=== PATIENT | female | born 1960 | race Hispanic/Latino ===

== ENCOUNTER 2018-11-14 20:58 | Observation (INO) | payer OTHER ==
[~2018-11-14] VITALS: Ht 157.5 cm; Wt 90.7 kg
[2018-11-14] MEDS ORDERED: SODIUM CHLORIDE 0.9% 1000ML 1,000 ML IV STA (21:13)
[2018-11-14] MEDS ORDERED: ASPIRIN 81 MG CHEW TAB PO ONE ×2 (21:15→22:45)
[2018-11-14] MEDS ORDERED: ADENOSINE 6 MG/2 ML VIAL IV ONE ×2 (21:15→22:00)
[2018-11-14 21:38] LABS: BASOPHILS # (AUTO) 0.1 (0.0-0.1); BASOPHILS % 0.4 % (0.0-1.0); EOSINOPHILS # (AUTO) 0.3 (0.0-0.4); EOSINOPHILS % 2.4 % (0.0-6.0); HEMATOCRIT 44.1 % (34.2-44.1); LYMPHOCYTES # (AUTO) 4.8 (1.0-3.2); LYMPHOCYTES % 40.9 % (18.0-39.1); MEAN CORPUSCULAR HEMOGLOBIN 29.8 pg (28-32); MEAN CORPUSCULAR VOLUME 87.5 fL (81-99); MONOCYTES # (AUTO) 1.2 (0.2-0.8); MONOCYTES % 9.9 % (4.4-11.3); NEUTROPHILS # (AUTO) 5.4 (2.1-6.9); PLATELET COUNT 281 x10e3/uL (140-360); RED BLOOD COUNT 5.04 x10e6/uL (3.6-5.1); RED CELL DISTRIBUTION WIDTH 13.2 % (11.7-14.4)
[2018-11-14 22:21] LABS: ALBUMIN/GLOBULIN RATIO 0.9 (0.8-2.0); ANION GAP 20.5 mmol/L (8-16); CALCIUM 9.6 mg/dL (8.4-10.2); CREATININE, SERUM 1.04 mg/dL (0.57-1.11); MAGNESIUM 2.4 MG/DL (1.3-2.1)
[2018-11-14 22:23] LABS: BILIRUBIN,URINE NEGATIVE (NEGATIVE); CLARITY,URINE CLEAR (CLEAR); COLOR,URINE YELLOW (YELLOW); KETONES,URINE NEGATIVE (NEGATIVE); LEUKOCYTE ESTERASE ,URINE NEGATIVE (NEGATIVE); NITRITE,URINE NEGATIVE (NEGATIVE); PROTEIN,URINE DIPSTICK NEGATIVE (NEGATIVE); URINE UROBILINOGEN 0.2 mg/dL (0.2 - 1)
[2018-11-14 22:27] LABS: CREATINE KINASE MB 1.6 ng/mL (0-5.0)
[2018-11-14 22:35] LABS: BACTERIA,URINE MODERATE /HPF; EPITHELIAL CELLS,URINE FEW /LPF; WBC,URINE (MAN) 0-5 /HPF (0-5)
[2018-11-14 22:46] LABS: POTASSIUM 6.5 mmol/L (3.5-5.1)
[2018-11-14] MEDS ORDERED: DEXTROSE 50% SYRINGE 50 ML IV STA (22:47)
[2018-11-14] MEDS ORDERED: INSULIN REGULAR, HUMAN 100 UNIT/1 ML 3ML VIAL IV ONE (23:00)
[2018-11-14] MEDS ORDERED: SOD POLYSTYRENE SULFONATE SUSP 15 GM/60 ML BTL PO ONE (23:00)
[2018-11-14 23:15] LABS: ALANINE AMINOTRANSFERASE 21 IU/L (0-55); ALBUMIN 3.7 g/dL (3.5-5.0); ALBUMIN/GLOBULIN RATIO 1.2 (0.8-2.0); ALKALINE PHOSPHATASE 106 IU/L (40-150); ANION GAP 17.2 mmol/L (8-16); BLOOD UREA NITROGEN 18 mg/dL (7-26); BUN/CREATININE RATIO 21 (6-25); CARBON DIOXIDE 22 mmol/L (22-29); CHLORIDE 108 mmol/L (98-107); CREATININE, SERUM 0.84 mg/dL (0.57-1.11); EST GLOMERULAR FILTRATION RATE > 60 ML/MIN (60-); GLUCOSE 109 mg/dL (74-118); POTASSIUM 4.2 mmol/L (3.5-5.1); SODIUM 143 mmol/L (136-145)
--- NOTE | 2018-11-14 23:18 | Diagnostic Imaging Report ---
EXAMINATION: CHEST SINGLE (PORTABLE) COMPARISON: None INDICATION: Hypertension ^ERMD ORDER ^[id number] ^2220 ^Y DISCUSSION: Frontal view of the chest obtained at 2225 hours. HEART AND MEDIASTINUM: The heart is top normal in size, possibly due to technique. The aorta is normal in morphology LINES: None. LUNGS: The lungs are well inflated and clear. No pneumonia or pulmonary edema. PLEURA: No pleural effusion or pneumothorax. BONES AND SOFT TISSUES: No focal osseous lesion. The soft tissues are normal. IMPRESSION: No acute cardiopulmonary disease. Signed by: Dr. Thien Dorsey MD on 11/14/2018 11:15 PM
[2018-11-14] MEDS ORDERED: vitamin b12 PO (23:36)
[2018-11-14] MEDS ORDERED: MULTI-VITAMIN1 EACH PO (23:36)
[2018-11-14] MEDS ORDERED: DIOVAN80 MG PO (23:36)
[2018-11-14] MEDS ORDERED: GRISEOFULVIN U250 MG PO (23:36)
[2018-11-15] VITALS (10 sets, daily range): BP systolic 135–201; BP diastolic 76–112
--- NOTE | 2018-11-15 00:40 | NUR ---
Received the patient from Er in a wheel chair with c/o anxiety.admission assessment done.no resp.distress.no chest pain voiced.tele #[id number] placed sinus rhythm.oriented to the unit.bed locked and in lowest position.phone and call light within reach.instructed to call for assistance as needed.keep monitor the patient.
--- NOTE | 2018-11-15 02:00 | NUR ---
As per the report from Er consults md villeda is being called.
[2018-11-15] MEDS: METOPROLOL TARTRATE 25 MG TAB PO SCH ×2 (05:36→16:49)
--- NOTE | 2018-11-15 05:36 | NUR ---
BP 177/78 .METOPROLOL 25 MG PO GIVEN.
[2018-11-15 06:51] LABS: BASOPHILS % 0.3 % (0.0-1.0); EOSINOPHILS # (AUTO) 0.2 (0.0-0.4); EOSINOPHILS % 2.4 % (0.0-6.0); HEMATOCRIT 41.7 % (34.2-44.1); LYMPHOCYTES % 34.9 % (18.0-39.1); MEAN CORPUSCULAR HEMOGLOBIN 29.6 pg (28-32); MEAN CORPUSCULAR HGB CONC 33.6 g/dL (31-35); MEAN CORPUSCULAR VOLUME 88.2 fL (81-99); MONOCYTES # (AUTO) 0.8 (0.2-0.8); MONOCYTES % 9.3 % (4.4-11.3); NEUTROPHILS # (AUTO) 4.5 (2.1-6.9); NEUTROPHILS % 52.5 % (38.7-80.0); PLATELET COUNT 271 x10e3/uL (140-360); RED BLOOD COUNT 4.73 x10e6/uL (3.6-5.1); RED CELL DISTRIBUTION WIDTH 13.2 % (11.7-14.4)
--- NOTE | 2018-11-15 07:10 | NUR ---
BED SIDE REPORT GIVEN TO ONCOMING RN.STABLE CONDITION.
[2018-11-15 07:12] LABS: ALANINE AMINOTRANSFERASE 19 IU/L (0-55); ALBUMIN 3.5 g/dL (3.5-5.0); ALBUMIN/GLOBULIN RATIO 1.2 (0.8-2.0); ALKALINE PHOSPHATASE 94 IU/L (40-150); BLOOD UREA NITROGEN 14 mg/dL (7-26); BUN/CREATININE RATIO 19 (6-25); CALCIUM 9.1 mg/dL (8.4-10.2); CARBON DIOXIDE 27 mmol/L (22-29); CHLORIDE 106 mmol/L (98-107); CREATININE, SERUM 0.75 mg/dL (0.57-1.11); EST GLOMERULAR FILTRATION RATE > 60 ML/MIN (60-); GLUCOSE 100 mg/dL (74-118); MAGNESIUM 2.2 MG/DL (1.3-2.1); SODIUM 143 mmol/L (136-145)
--- NOTE | 2018-11-15 07:34 | NUR ---
Received patient this morning with a high BP of 202/110, alert and denies pain. Call to cable maker and orders in place. will monitor.
[2018-11-15] MEDS: HYDRALAZINE HCL 20 MG/ML VIAL IV PRN ×2 (07:55→12:20)
[2018-11-15 08:22] LABS: CREATINE KINASE MB 5.2 ng/mL (0-5.0)
[2018-11-15] MEDS: VALSARTAN 80 MG TAB PO SCH (08:30)
[2018-11-15] MEDS: AMLODIPINE BESYLATE 10 MG TAB PO SCH (08:30)
--- NOTE | 2018-11-15 09:28 | NUR ---
BP rechecked and at 156/87, HR86, denies chest pains
[2018-11-15] MEDS: ASPIRIN 81 MG ENTERIC COATED PO SCH (11:00)
--- NOTE | 2018-11-15 12:57 | History and Physical ---
PRIMARY CARE PHYSICIAN: TOOL AND DIE ENGINEER: Dr. Duke Gaston. CHIEF COMPLAINT: SVT, chest pain. HISTORY OF PRESENT ILLNESS: The patient is a 58-year-old female placed in the hospital for SVT and also chest pain as well. The patient has a small bump in her cardiac enzymes. The troponin I slightly elevated at 0.37. The patient is otherwise stable at this time. Only medical problem is hypertension. The patient is currently stable. She did have some nonspecific ST changes on the EKG. The patient is in normal sinus rhythm at this time. PAST MEDICAL HISTORY: Hypertension. PAST SURGICAL HISTORY: Noncontributory. SOCIAL HISTORY: The patient does not smoke or use alcohol. No regular drug use. ALLERGIES: TO TERBINAFINE. HOME MEDICATION: Griseofulvin and losartan. PHYSICAL EXAMINATION: VITAL SIGNS: Temperature is 98, blood pressure 177/85, pulse rate is 78, respirations 18. GENERAL: The patient is not in acute distress. She is awake. HEENT: Normocephalic, atraumatic. Pupils reactive. Anicteric. NECK: Supple grossly. PULMONARY: Diminished breath sounds. CARDIOVASCULAR: Regular rate and rhythm. ABDOMEN: Soft, nontender, non-distention. EXTREMITIES: No cyanosis or edema NEUROLOGIC: No gross focal deficit. LABORATORY DATA: Sodium is 143, potassium 4, chloride 106, bicarb 27, BUN 14, creatinine 0.7, glucose 100. WBC is 8.6, hemoglobin 14, hematocrit 42, platelets is 271. IMPRESSION: 1. Supraventricular tachycardia. 2. Hypertensive urgency. 3. Chest pain. PLAN: Continue with current management. Consultation with Dr. Duke Gaston. We will adjust the patient's medication. MD PABLO Parekh/JUAN FRANCISCO /[id number]
--- NOTE | 2018-11-15 13:03 | NUR ---
Patient said her heart was beating faster and she has a headache. BP taken and recorded, HR 110-108 apically. Her nurse notified. Tele notified and stated HR is Sinus Tach with no A-Fib. This is the highest the HR has been to date since admission.
[2018-11-15] MEDS: ACETAMINOPHEN 325 MG TAB PO PRN ×2 (13:26→20:01)
[2018-11-15 15:59] LABS: CREATINE KINASE MB 3.2 ng/mL (0-5.0)
--- NOTE | 2018-11-15 19:20 | NUR ---
Received the patient from morning Rn. no chest pain voiced stable condition.lyeing in the bed.
--- NOTE | 2018-11-15 20:49 | NUR ---
Assessment done.no resp.distress.shower taken.had headache.medicated with tylenol 65 mg po.stable condition.bed locked and in lowest position.phone and call light within reach.instructed to call for assistance as needed. Addendum: 11/15/18 at 2233 by Jeannie Espana RN tylenol 650mg po administered.
--- NOTE | 2018-11-15 21:31 | NUR ---
REPORT GIVEN TO FARAZ CHAPA IN MED SURG 1.
--- NOTE | 2018-11-15 21:39 | NUR ---
Transferring the patient to room #112 in a wheel chair in stable condition with all the belongings.notified to tele dept.
--- NOTE | 2018-11-15 21:55 | NUR ---
PT TRANSFERRED FROM ROOM 202 AAOX3. NO S/S OF DISTRESS NOTED. NO COMPLAINTS VOICED AT THIS TIME. ORIENTED PT AND FAMILY TO UNIT. INSTRUCTED TO CALL FOR ASSISTANCE NEEDED. PT AND FAMILY VERBALIZED UNDERSTANDING.
[2018-11-16] VITALS (11 sets, daily range): BP systolic 122–169; BP diastolic 71–94
[2018-11-16 07:06] LABS: THYROID STIMULATING HORMONE 0.805 uIU/mL (0.350-4.940)
--- NOTE | 2018-11-16 07:07 | NUR ---
Patient lying in bed with eyes open. Respiration even and unlabored without SOB. Call light in reach.
[2018-11-16] MEDS: ASPIRIN 81 MG ENTERIC COATED PO SCH (09:00)
[2018-11-16] MEDS: METOPROLOL TARTRATE 25 MG TAB PO SCH ×2 (09:03→17:22)
[2018-11-16] MEDS: AMLODIPINE BESYLATE 10 MG TAB PO SCH (09:03)
[2018-11-16] MEDS: VALSARTAN 80 MG TAB PO SCH (09:03)
[2018-11-16] MEDS ORDERED: HEPARIN SOD (PORCINE) 1000 UNIT/ML 30ML ONE (12:32)
[2018-11-16] MEDS ORDERED: SODIUM CHLORIDE 0.9% 1000ML 1,000 ML ONE (12:33)
[2018-11-16] MEDS ORDERED: IOPAMIDOL 370 MG/ML 200 ML INFUS..BTL INJ ONE (12:33)
[2018-11-16] MEDS ORDERED: LIDOCAINE HCL 2% LOCAL 20 ML VIAL ONE (12:33)
[2018-11-16] MEDS ORDERED: VERAPAMIL HCL 2.5 MG/ML 2 ML VIAL ONE (12:33)
[2018-11-16] MEDS ORDERED: NITROGLYCERIN/D5W 200 MCG/ML 250 ML ONE (12:33)
[2018-11-16] MEDS ORDERED: HEPARIN SOD/SOD CHLORIDE 1,000 ML ONE (12:33)
[2018-11-16] MEDS ORDERED: MIDAZOLAM HCL 2 MG/2 ML VIAL ONE (12:49)
[2018-11-16] MEDS ORDERED: FENTANYL CITRATE/PF 100MCG/2 ML INJ ONE (12:49)
--- NOTE | 2018-11-16 13:01 | NUR ---
Patient is transported for heart cath at this time.
--- NOTE | 2018-11-16 14:44 | Consultation ---
DATE OF CONSULTATION: 11/16/2018 Cardiology Consultation REQUESTING PHYSICIAN: Dean Small MD. REASON FOR CONSULTATION: 1. Elevated troponin. 2. Supraventricular tachycardia. HISTORY OF PRESENT ILLNESS: This is a 58-year-old woman with history of hypertension, who presents with complaints of palpitations. The patient reports she had been cleaning her kitchen on Friday night, when she had sudden onset of palpitations. She denied any chest pain, shortness of breath, or lightheadedness. Due to her symptoms, she presented to the ER for further evaluation. She was noted to have a small rise in her troponin to 0.372, but otherwise denies edema, orthopnea, or PND. Cardiology is consulted for further evaluation. REVIEW OF SYSTEMS: A 12-point review of systems was performed and is negative except as per HPI. PAST MEDICAL HISTORY: Hypertension. PAST SURGICAL HISTORY: 1. section. 2. Hysterectomy. ALLERGIES: PLEASE SEE EMR. MEDICATIONS: Please see medication list. SOCIAL HISTORY: She denies tobacco, alcohol, or illicit drugs. FAMILY HISTORY: Pertinent for mother with hypertension. PHYSICAL EXAMINATION: VITAL SIGNS: Temperature 98.7 degrees, pulse 104, respiratory rate 18, blood pressure 165/94, oxygen saturation 99% on room air. GENERAL: Awake, alert, well-developed, well-nourished woman, in no acute distress. HEENT: Normocephalic, atraumatic. Pupils equal. No scleral icterus. NECK: Supple. No thyromegaly or cervical lymphadenopathy. No carotid bruits. LUNGS: Clear to auscultation bilaterally. No wheezes or crackles. CARDIOVASCULAR: Normal rate. Regular rhythm. No murmur. Normal S1, S2. ABDOMEN: Soft and nontender. EXTREMITIES: No edema. NEUROLOGIC: Nonfocal exam. LABORATORY DATA: Sodium 143, potassium 4, chloride 106, CO2 of 27, BUN 14, creatinine 0.75. Troponin 0.372. Cholesterol 221, triglycerides 233, LDL 137, HDL 37. WBC 8.6, hemoglobin 14, hematocrit 41.7, platelets 271. Echocardiogram, normal LV size and systolic function with mild concentric LVH, impaired LV relaxation. No significant valvular abnormalities. EKG, supraventricular tachycardia with marked ST abnormalities. IMPRESSION: 1. Elevated troponin - Suspect demand ischemia in the setting of supraventricular tachycardia with heart rates in the 200s. 2. Hypertension, uncontrolled. RECOMMENDATIONS: Suspect elevated troponin secondary to demand ischemia in the setting of supraventricular tachycardia. We will proceed with ischemic evaluation. Start the patient on verapamil for rate control. We will discontinue amlodipine. Increase valsartan. Add atorvastatin, given hyperlipidemia. The patient will need referral to Electrophysiology for ablation. However, this will be done as an outpatient. Thank you for this consult. We will continue to follow. Penelope Lei MD ABS/MODL /[id number]
[2018-11-16] MEDS ORDERED: PRAVASTATIN SOD20 MG PO (18:09)
[2018-11-16] MEDS ORDERED: ASPIR 8181 MG PO (18:09)
[2018-11-16] MEDS ORDERED: NORVASC5 MG PO (18:10)
[2018-11-16] MEDS ORDERED: METOPROLOL TART50 MG PO (18:10)
--- NOTE | 2018-11-16 18:40 | NUR ---
Patient is to be discharge home today. PIV to right hand and left FA discontinued, catheter tip intact, no bleeding noted.
--- NOTE | 2018-11-16 18:42 | NUR ---
Patient transported via wheelchair to private vehicle for discharge. Belongings is carried by patient's spouse.
[2018-11-16] MEDS ORDERED: ATORVASTATIN 20 MG TAB PO SCH (21:00)
[2018-11-17] MEDS ORDERED: VALSARTAN 80 MG TAB PO SCH (09:00)
[2018-11-17] MEDS ORDERED: VERAPAMIL HCL 120 MG TABSR PO SCH (09:00)
--- NOTE | 2019-02-01 16:42 | Operative Report ---
DATE OF PROCEDURE: SURGEON: Duke Gaston MD INDICATION FOR PROCEDURE: Chest pain, abnormal stress. PREPROCEDURE ASSESSMENT: Risks, benefits, and alternatives to treatment were explained to the patient prior to the procedure. The patient was deemed to be an appropriate candidate for moderate sedation. Please see nursing notes for medications administered throughout the procedure. PROCEDURES PERFORMED: 1. Coronary angiography. 2. Left heart catheterization. PROCEDURE DETAILS: The patient was brought to the cardiac catheterization laboratory in a fasting state. Right wrist was prepped and draped in a sterile fashion. A 6-[place] Slender sheath was inserted in right radial artery using modified Seldinger technique. Coronary angiography was performed using 5-[place] Aneta radial catheter to engage the left and right coronary system. Multiple orthogonal views were taken of each coronary artery. Left heart catheterization was performed using the pigtail catheter. All catheters were removed over a wire. There were no immediate complications. TR band was used to achieve adequate hemostasis after sheath removal. SIGNIFICANT FINDINGS: Codominant coronary system with only mild luminal irregularities noted. No obstructive CAD. LVEDP of 16 mmHg. No bleeding across the aortic valve. GRAFTS AND IMPLANTS: None. SPECIMENS REMOVED: None. ESTIMATED BLOOD LOSS: Negligible. COMPLICATIONS: None. FINAL RECOMMENDATIONS: 1. Continue optimal medical therapy and risk factor control. 2. Follow up in clinic 2 weeks post discharge. Duke Gaston MD KVP/MODL /[id number]
== END 2018-11-16 18:41 | disposition home or self-care (01) ==
LOC: FSED 20:58 → ERHOLD 22:38 → MED/SURG2 11-15 00:32 → MED/SURG 11-15 21:40
PROVIDERS: ADMIT Internal Medicine; ATTEND Internal Medicine
DX: I47.1 Supraventricular tachycardia (principal); I20.0 Unstable angina; I16.0 Hypertensive urgency; E78.5 Hyperlipidemia, unspecified; R74.9 Abnormal serum enzyme level, unspecified; R94.39 Abnormal result of other cardiovascular function study
CPT/HCPCS: 36415 ×3; 71045; 80053 ×2; 80061; 81001; 82550 ×2; 82553 ×2; 83690; 83735 ×2; 84443; 84484 ×2; 85025 ×2; 93005; 93306 ×2; 93458; 96374; 96376; 99284; C1887; G0378 ×3; J0153; J0360; J1644; J2001; J2250; J3010; J7030 ×2; Q9967

== ENCOUNTER 2019-04-26 08:35 | Emergency (ER) | payer OTHER ==
[~2019-04-26] VITALS: Ht 157.5 cm; Wt 90.7 kg
[~2019-04-26 08:35] MED LIST: ASPIR 8181 MG PO; DIOVAN80 MG PO; GRISEOFULVIN U250 MG PO; METOPROLOL TART50 MG PO; MULTI-VITAMIN1 EACH PO; NORVASC5 MG PO; PRAVASTATIN SOD20 MG PO; vitamin b12 PO
--- OUTSIDE RECORDS SUMMARY | 2019-04-26 08:38 | XMS REPORT ---
Author Author [facility] Address Unknown Phone Unavailable Care Team Providers Care Wind Plant Manager Name Role Phone TEODORA PANTOJA Unavailable Unavailable Problems This patient has no known problems. Allergies, Adverse Reactions, Alerts This patient has no known allergies or adverse reactions. Medications This patient has no known medications. Results Test Description Test Time Test Comments Text Results Atomic Results Result Comments CHEST SINGLE (PORTABLE) 2018-11-14 23:14:00 [facility] [address] [address] Patient Name: ROLAN GARCIA MR #: [id number] : 1960 Age/Sex: 58/F Req #: [id number] Adm Physician: TEODORA PANTOJA MD Ordered by: BRIAN MASON MD Report #: [id number] Location: [facility] Room/Bed: [place] [address] Procedure: [id number] DX/CHEST SINGLE (PORTABLE) Exam Date: 11/14/18 Exam Time: 2219 REPORT STATUS: Signed EXAMINATION: CHEST SINGLE (PORTABLE) COM PARISON: None INDICATION: Hypertension ERMD ORDER [id number] 2219 Y DISCUSSION: Frontal view of the chest obtained at 2225 hours. HEART AND MEDIASTINUM: The heart is top normal in size, possibly due to technique. The aorta is normal in morphology LINES: None. LUNGS: The lungs are well inflated and clear. No pneumonia or pulmonary edema. PLEURA: No pleural effusion or pneumothorax. BONES AND SOFT TISSUES: No focal osseous lesion. The soft tissues are normal. IMPRESSION: No acute cardiopulmonary disease. Signed by: Dr. Jacquie Dorsey MD on 11/14/2018 11:15 PM Dictated By: JACQUIE DORSEY MD Transcribed By: SHERRI on 11/14/182314 COPY TO: BRIAN MASON MD
[2019-04-26] MEDS ORDERED: SODIUM CHLORIDE 0.9% 1000ML 1,000 ML IV STA (08:51)
[2019-04-26 09:29] LABS: BASOPHILS # (AUTO) 0.1 (0.0-0.1); BASOPHILS % 0.6 % (0.0-1.0); EOSINOPHILS # (AUTO) 0.1 (0.0-0.4); EOSINOPHILS % 1.5 % (0.0-6.0); HEMATOCRIT 45.1 % (34.2-44.1); HEMOGLOBIN 15.1 g/dL (12.0-16.0); LYMPHOCYTES # (AUTO) 2.8 (1.0-3.2); LYMPHOCYTES % 31.8 % (18.0-39.1); MEAN CORPUSCULAR HEMOGLOBIN 29.4 pg (28-32); MEAN CORPUSCULAR HGB CONC 33.5 g/dL (31-35); MEAN CORPUSCULAR VOLUME 87.9 fL (81-99); MONOCYTES # (AUTO) 0.6 (0.2-0.8); MONOCYTES % 7.2 % (4.4-11.3); NEUTROPHILS # (AUTO) 5.2 (2.1-6.9); NEUTROPHILS % 58.2 % (38.7-80.0); PLATELET COUNT 258 x10e3/uL (140-360); RED BLOOD COUNT 5.13 x10e6/uL (3.6-5.1); RED CELL DISTRIBUTION WIDTH 12.7 % (11.7-14.4)
[2019-04-26 09:53] LABS: ALANINE AMINOTRANSFERASE 30 IU/L (0-55); ALBUMIN/GLOBULIN RATIO 1.1 (0.8-2.0); ALKALINE PHOSPHATASE 120 IU/L (40-150); ANION GAP 14.8 mmol/L (8-16); BLOOD UREA NITROGEN 13 mg/dL (7-26); BUN/CREATININE RATIO 17 (6-25); CALCIUM 9.8 mg/dL (8.4-10.2); CARBON DIOXIDE 24 mmol/L (22-29); CHLORIDE 107 mmol/L (98-107); CREATINE KINASE 86 IU/L (29-168); CREATININE, SERUM 0.78 mg/dL (0.57-1.11); EST GLOMERULAR FILTRATION RATE > 60 ML/MIN (60-); GLUCOSE 113 mg/dL (74-118); POTASSIUM 3.8 mmol/L (3.5-5.1); SODIUM 142 mmol/L (136-145)
[2019-04-26 10:04] LABS: CLARITY,URINE CLEAR (CLEAR); COLOR,URINE YELLOW (YELLOW)
[2019-04-26 10:05] LABS: BILIRUBIN,URINE NEGATIVE (NEGATIVE); KETONES,URINE NEGATIVE (NEGATIVE); LEUKOCYTE ESTERASE ,URINE NEGATIVE (NEGATIVE); NITRITE,URINE NEGATIVE (NEGATIVE); PROTEIN,URINE DIPSTICK NEGATIVE (NEGATIVE); URINE UROBILINOGEN 0.2 mg/dL (0.2 - 1)
[2019-04-26 10:11] LABS: BACTERIA,URINE FEW /HPF; EPITHELIAL CELLS,URINE FEW /LPF; RBC,URINE 0-5 /HPF (0-5); WBC,URINE (MAN) 0-5 /HPF (0-5)
--- NOTE | 2019-04-26 10:13 | Diagnostic Imaging Report ---
EXAMINATION: CHEST 2 VIEWS INDICATION: Palpitations, tachycardia COMPARISON: Chest radiograph 11/14/2018 FINDINGS: LINES/TUBES:EKG leads overlie the chest. LUNGS:The lungs are well-inflated. No focal consolidation or pulmonary edema. PLEURA:No pleural effusion or pneumothorax. MEDIASTINUM:The cardiomediastinal silhouette appears normal in size and shape. BONES/SOFT TISSUES:No acute osseous injury. ABDOMEN:No free air under the diaphragm. IMPRESSION: No focal pneumonia or pulmonary edema. Signed by: Vikram Montes MD on 04/26/2019 10:10 AM
[2019-04-26 11:02] VITALS: BP 136/83
== END 2019-04-26 11:11 | disposition home or self-care (01) ==
LOC: ER 08:35
DX: R00.2 Palpitations (principal); R42 Dizziness and giddiness
CPT/HCPCS: 36415; 71046; 80053; 81001; 82550; 82553; 83880; 84484; 85025; 93005; 99283; J7030

== ENCOUNTER 2022-08-24 09:57 | Emergency (ER) | payer OTHER ==
[~2022-08-24] VITALS: Ht 157.5 cm; Wt 90.7 kg
[2022-08-24] MEDS ORDERED: ADENOSINE 6MG/2ML 0 ML ONE (10:16)
[2022-08-24] MEDS ORDERED: METOPROLOL TARTRATE 50 MG TAB PO ONE (10:30)
[2022-08-24] MEDS ORDERED: METOPROLOL SUCC50 MG PO (10:33)
[2022-08-24 10:34] LABS: BASOPHILS % 0.4 % (0.0-1.0); EOSINOPHILS # (AUTO) 0.1 (0.0-0.4); EOSINOPHILS % 0.7 % (0.0-6.0); HEMATOCRIT 46.1 % (34.2-44.1); HEMOGLOBIN 15.8 g/dL (12.0-16.0); LYMPHOCYTES # (AUTO) 3.2 (1.0-3.2); LYMPHOCYTES % 33.3 % (18.0-39.1); MEAN CORPUSCULAR HGB CONC 34.3 g/dL (31-35); MEAN CORPUSCULAR VOLUME 87.5 fL (81-99); MONOCYTES # (AUTO) 0.6 (0.2-0.8); MONOCYTES % 5.7 % (4.4-11.3); NEUTROPHILS # (AUTO) 5.8 (2.1-6.9); NEUTROPHILS % 59.5 % (38.7-80.0); PLATELET COUNT 297 x10e3/uL (140-360); RED BLOOD COUNT 5.27 x10e6/uL (3.6-5.1); RED CELL DISTRIBUTION WIDTH 12.5 % (11.7-14.4)
[2022-08-24 10:52] LABS: ANION GAP 16.1 mmol/L (8-16); CALCIUM 9.6 mg/dL (8.4-10.2); CREATININE, SERUM 0.9 mg/dL (0.57-1.11); POTASSIUM 4.1 mmol/L (3.5-5.1)
[2022-08-24 11:45] VITALS: O2SAT 98
== END 2022-08-24 12:21 | disposition home or self-care (01) ==
LOC: ER 10:10
DX: I47.1 Supraventricular tachycardia (principal); I10 Essential (primary) hypertension; R94.31 Abnormal electrocardiogram [ECG] [EKG]
CPT/HCPCS: 36415; 71045; 80048; 85025; 93005; 99284; J0153